=== PATIENT | male | born 2000 | race American Indian/Alaskan Native ===

== ENCOUNTER 2019-08-22 05:38 | Emergency (ER) | payer OTHER ==
[2019-08-22 07:11] LABS: Basophils % (Auto) 0.2 % (0.0-1.8); Eosinophils # (Auto) 0.1 K/mm3 (0.0-0.4); Eosinophils % (Auto) 0.6 % (0.0-4.3); Hematocrit 44.8 % (35.5-45.6); Hemoglobin 15.1 gm/dl (11.8-15.2); Lymphocytes % (Auto) 9.9 % (13.4-35.0); Mean Corpuscular HGB Conc 34 % (32-34); Mean Corpuscular Volume 87 fl (84-94); Monocytes # (Auto) 0.7 K/mm3 (0.0-0.8); Monocytes % (Auto) 6.6 % (0.0-7.3); Platelet Count 266 K/mm3 (140-440); Red Blood Count 5.18 M/mm3 (3.65-5.03); Red Cell Distribution Width 12.8 % (13.2-15.2)
[2019-08-22] MEDS ORDERED: MORPHINE 2 MG/1 ML INJ IV ONE ×2 (07:14→08:52)
[2019-08-22] MEDS ORDERED: ONDANSETRON 4 MG/2 ML INJ IV ONE ×2 (07:14→08:50)
[2019-08-22] MEDS ORDERED: SODIUM CHLORIDE 0.9% 1000 ML 1,000 ML IV ONE (07:14)
[2019-08-22] MEDS ORDERED: TAZOBACTAM IV ONE (07:15)
[2019-08-22] MEDS ORDERED: PIPERACILLIN IV ONE (07:15)
[2019-08-22 07:26] LABS: Alanine Aminotransferase 17 units/L (7-56); BUN/Creatinine Ratio 12; Blood Urea Nitrogen 19 mg/dL (9-20); Calcium 10.2 mg/dL (8.4-10.2); Hemolysis Index 19
[2019-08-22 07:44] LABS: Bacteria,Urine 1+ /HPF (Negative); Bilirubin,Urine NEG (Negative); Blood,Urine LG (Negative); Color,Urine Yellow (Yellow); Mucus,Urine 1+ /HPF; Urobilinogen,Urine < 2.0 mg/dL (<2.0)
[2019-08-22 07:56] LABS: RBC,Urine > 182.0 /HPF (0.0-6.0)
[2019-08-22] MEDS ORDERED: PIPERACILLIN/TAZOBACTAM 3.375 3.375 GM/50 ML BAG IV ONE (08:00)
--- NOTE | 2019-08-22 09:14 | Cat Scan Report ---
CT abdomen pelvis w con INDICATION: MAIN: lower abd pain 1st attempt iv infiltrated. 1000 ml Omni 300. TECHNIQUE: All CT scans at this location are performed using the following dose modulation technique: Automated exposure control. Helical slices were obtained through the abdomen and pelvis. 100 cc of Omnipaque 30 0 is administered. COMPARISON: None available. FINDINGS: Abdomen: The lung bases are clear. Liver, spleen, pancreas, adrenal glands, and right kidney are unre markable. The aorta is normal in diameter. There is wall thickening noted in the transverse colon and left colon raising possibility of colitis. There is no adenopathy. There is mild dilatation of the left renal collecting system and there is delayed excretion of contra st from the left kidney compared to the right. Pelvis: There is a 4 mm stone in the distal left ureter. There is no inflammatory change. The appendi x is unremarkable. On review of bone windows, no acute osseous abnormalities are seen. IMPRESSION: 1. There is a 4 mm stone in the distal left ureter with mild left hydronephrosis and delayed excretio n from the left kidney. 2. There is some apparent wall thickening in the transverse and left colon. This may simply represent collapsed state of the bowel. Possibility of colitis is considered Signer Name: Sd Enrique MD Signed: 08/22/2019 9:10 AM Workstation Name: [id number]
--- NOTE | 2019-08-22 10:44 | Emergency Department Report ---
ED General Adult HPI - General Chief complaint: Abdominal Pain Stated complaint: ABD PAIN Time Seen by Provider: 08/22/19 07:05 Source: patient Mode of arrival: Ambulatory Limitations: No Limitations - History of Present Illness Initial comments: This is a 19-year-old man who reports lower abdominal pain and vomiting. He is a poor historian. Seems to be bilateral but left greater than right. He states he is been diagnosed with similar pain due to a "stomach virus". He relates his current pain to eating "chicken". He has not had any diarrhea. He denies fever or chills. Does not report any change. -: Gradual, hour(s) Location: abdomen Radiation: non-radiation Quality: aching Consistency: constant Improves with: none Worsens with: none Associated Symptoms: denies other symptoms, nausea/vomiting Treatments Prior to Arrival: none - Related Data Previous Rx's Medication Instructions Recorded Last Taken Type HYDROcodone/APAP 5-325 [[place] 1 each PO Q4HR PRN #10 tablet 08/22/19 Unknown Rx 5/325] Sulfamethoxazole/Trimethoprim 1 each PO BID #14 tablet 08/22/19 Unknown Rx [Bactrim DS TAB] Allergies Allergy/AdvReac Type Severity Reaction Status Date / Time No Known Allergies Allergy Verified 08/22/19 07:18 ED Review of Systems ROS: Stated complaint: ABD PAIN Other details as noted in HPI Constitutional: denies: chills, fever Eyes: denies: eye pain, eye discharge, vision change ENT: denies: ear pain, throat pain Respiratory: denies: cough, shortness of breath, wheezing Cardiovascular: denies: chest pain, palpitations Endocrine: no symptoms reported Gastrointestinal: abdominal pain, nausea, vomiting. denies: diarrhea Genitourinary: denies: urgency, dysuria Musculoskeletal: denies: back pain, joint swelling, arthralgia Skin: denies: rash, lesions Neurological: denies: headache, weakness, paresthesias Psychiatric: denies: anxiety, depression Hematological/Lymphatic: denies: easy bleeding, easy bruising ED Past Medical Hx - Past Medical History Previous Medical History?: No - Surgical History Past Surgical History?: No - Social History Smoking Status: Never Smoker Substance Use Type: None - Medications Home Medications: Home Medications Medication Instructions Recorded Confirmed Last Taken Type HYDROcodone/APAP 5-325 [[place] 1 each PO Q4HR PRN #10 tablet 08/22/19 Unknown Rx 5/325] Sulfamethoxazole/Trimethoprim 1 each PO BID #14 tablet 08/22/19 Unknown Rx [Bactrim DS TAB] ED Physical Exam - General Limitations: No Limitations General appearance: alert, in no apparent distress - Head Head exam: Present: atraumatic, normocephalic - Eye Eye exam: Present: normal appearance - ENT ENT exam: Present: mucous membranes moist - Neck Neck exam: Present: normal inspection - Respiratory Respiratory exam: Present: normal lung sounds bilaterally. Absent: respiratory distress - Cardiovascular Cardiovascular Exam: Present: regular rate, normal rhythm. Absent: systolic m urmur, diastolic murmur, rubs, gallop - GI/Abdominal GI/Abdominal exam: Present: soft, tenderness (left lower quadrant to deep palpation), normal bowel sounds. Absent: distended, guarding, rebound, rigid - Rectal Rectal exam: Present: deferred - Extremities Exam Extremities exam: Present: normal inspection - Back Exam Back exam: Present: normal inspection. Absent: CVA tenderness (R), CVA tenderness (L) - Neurological Exam Neurological exam: Present: alert, oriented X3, CN II-XII intact. Absent: motor sensory deficit - Psychiatric Psychiatric exam: Present: normal affect, normal mood - Skin Skin exam: Present: warm, dry, intact, normal color. Absent: rash ED Course Vital Signs 08/22/19 08/22/19 08/22/19 05:46 07:35 08:52 Temperature 99.0 F Pulse Rate 97 H Respiratory 20 18 18 Rate Blood Pressure 146/80 O2 Sat by Pulse 99 Oximetry - Reevaluation(s) Reevaluation #1: Patient was given morphine. He was given 1 dose of antibiotics to cover the possibility ventricular abdominal infection. A CT of the abdomen and pelvis was definitive for hydronephrosis and a 4 mm kidney stone on the left. The radiologist stated that the associated sigmoid colon could be inflamed or ST compress. I do not believe the patient has colitis. 08/22/19 10:41 ED Medical Decision Making - Lab Data Result diagrams: 08/22/19 06:36 08/22/19 06:36 Laboratory Results - last 24 hr 08/22/19 08/22/19 08/22/19 06:36 06:36 Unknown WBC 10.2 RBC 5.18 H Hgb 15.1 Hct 44.8 MCV 87 MCH 29 MCHC 34 RDW 12.8 L Plt Count 266 Lymph % (Auto) 9.9 L [place] % (Auto) 6.6 Eos % (Auto) 0.6 Baso % (Auto) 0.2 Lymph # 1.0 L [place] # 0.7 Eos # 0.1 Baso # 0.0 Seg Neutrophils % 82.7 H Seg Neutrophils # 8.5 H Sodium 142 Potassium 3.8 Chloride 103.6 Carbon Dioxide 20 L Anion Gap 22 BUN 19 Creatinine 1.6 H Estimated GFR > 60 BUN/Creatinine Ratio 12 Glucose 131 H Calcium 10.2 Total Bilirubin 0.50 AST 22 ALT 17 Alkaline Phosphatase 63 Total Protein 8.6 H Albumin 5.0 Albumin/Globulin Ratio 1.4 Lipase 19 Urine Color Yellow Urine Turbidity Clear Urine pH 6.0 Ur Specific [place] 1.025 Urine Protein 100 mg/dl Urine Glucose (UA) Neg Urine Ketones 20 Urine Blood Lg Urine Nitrite Neg Urine Bilirubin Neg Urine Urobilinogen < 2.0 Ur Leukocyte Esterase Tr Urine WBC (Auto) 8.0 H Urine RBC (Auto) > 182.0 Urine Bacteria (Auto) 1+ Urine Mucus 1+ Urine Yeast ([place]) Few - Radiology Data Radiology results: report reviewed Critical care attestation.: If time is entered above; I have spent that time in minutes in the direct care of this critically ill patient, excluding procedure time. ED Disposition Clinical Impression: Renal colic on left side, Renal insufficiency Disposition: DC-01 TO HOME OR SELFCARE Is pt being admited?: No Does the pt Need Aspirin: No Condition: Stable Instructions: Kidney Stones (ED), Renal Colic (ED), Impaired Kidney Function (ED) Additional Instructions: Further evaluation with a urologist for your kidney stone is recommended. Also primary care physician to recheck your kidney function as your kidney function is slow. We'll place her on antibiotic as well to cover the possibility of urinary infection. A urine culture will be ready in 2-3 days. Tear to the emergency department fever chills, vomiting, increased pain. Otherwise follow-up with referral physicians. Prescriptions: Sulfamethoxazole/Trimethoprim [Bactrim DS TAB] 1 each PO BID #14 tablet HYDROcodone/APAP 5-325 [[place] 5/325] 1 each PO Q4HR PRN #10 tablet PRN Reason: Pain Referrals: FRANCOIS MEAD MD [Primary Care Provider] - 2-3 Days [facility] [Provider Group] - 2-3 Days Time of Disposition: 10:45
[2019-08-22 10:45] VITALS: BP 108/48
== END 2019-08-22 11:43 | disposition home or self-care (01) ==
LOC: ED 05:38
DX: N23 Unspecified renal colic (principal); N28.9 Disorder of kidney and ureter, unspecified; Z79.899 Other long term (current) drug therapy
CPT/HCPCS: 36415; 74177; 80053; 81001; 83690; 85025; 96361; 96365; 96375; 96376; 99284; J2270; J2405; J2543; J7030; Q9967